=== PATIENT | female | born 1980 | race Caucasian/White ===

== ENCOUNTER 2019-10-26 16:39 | Emergency (ER) | payer BC, SELFPAY ==
--- NOTE | ~2019-10-26 | CT_ITS ---
EXAMINATION: CT brain wo con INDICATION: Headache COMPARISON: None TECHNIQUE: Standard unenhanced head CT. The dose-length product (DLP) was 605.33 mGy-cm. The mA was a djusted according to patient size. Iterative reconstruction technique was employed. FINDINGS: There is no intracranial hemorrhage, acute infarction, or abnormal mass lesion. The ventric les are normal. There is no abnormal mass effect or midline shift. The schafer-white matter differentiat ion is normal. The basal cisterns are patent. The orbits are normal. The paranasal sinuses, mastoids and calvarium are normal. IMPRESSION: 1. No acute intracranial abnormality. Reviewed, dictated and finalized at location A.
[2019-10-26 16:50] VITALS: BP 130/95; PULSE 111; RESP 20; TEMP 36.4; O2SAT 100
[2019-10-26] MEDS: SODIUM CHLORIDE 0.9% IV 1,000 ML 999 ML IV CONT (17:20)
--- NOTE | 2019-10-26 17:20 | ED.GENADULT ---
HPI - General Adult General Chief complaint: Headache <MICHELLE Ramirez Last Filed: 10/26/19 18:36> Stated complaint: headache, 20 wks <MICHELLE Ramirez Last Filed: 10/26/19 18:36> Time Seen by Provider: 10/26/19 16:48 <MICHELLE Ramirez Last Filed: 10/26/19 18:36> Source: patient <MICHELLE Ramirez Last Filed: 10/26/19 18:36> Mode of arrival: ambulatory <MICHELLE Ramirez Last Filed: 10/26/19 18:36> Limitations: no limitations <MICHELLE Ramirez Last Filed: 10/26/19 18:36> History of Present Illness HPI narrative: Patient is a 39-year-old female who presents noting right periorbital headache as a sharp stabbing pain for 3 days which is gradually worsened patient was seen by her office services associate today had ultrasound and is currently 20 weeks with a history of being G3, P2. Patient notes nausea but denies emesis injury trauma or URI symptoms. Patient notes she had headaches earlier in the denies any headaches over the last several weeks. On arrival patient is room in no distress patient denies any other focal neurologic deficits <MICHELLE Ramirez Last Filed: 10/26/19 18:36> Related Data Home medications: Home Medications Medication Instructions Recorded Confirmed cholecalciferol (vitamin D3) 50 mcg PO DAILY 10/26/19 pedi multivit no.91-iron fum mg PO DAILY 10/26/19 [Children's Chew Multivit-Iron] <MICHELLE Ramirez Last Filed: 10/26/19 18:36> Allergies/adverse reactions: Allergies Allergy/AdvReac Type Severity Reaction Status Date / Time Penicillins Allergy Unknown Rash Verified 10/26/19 16:59 <MICHELLE Ramirez Last Filed: 10/26/19 18:36> Review of Systems Review of Systems: All systems reviewed & are unremarkable except as noted in HPI and below <MICHELLE Ramirez Last Filed: 10/26/19 18:36> PMFSH Past Medical History Medical History: Medical History Bronchitis Streptococcal sore throat <Mckinley Jaime PA-C - Last Filed: 10/26/19 18:36> Surgical History Surgical History: Surgical History History of <Mckinley Jaime PA-C - Last Filed: 10/26/19 18:36> Social History Social History: Social History Smoking status: Never smoker Alcohol intake: current Gender identity (if verbalized by the patient): Male <Mckinley Jaime PA-C - Last Filed: 10/26/19 18:36> Exam Narrative: Exam Narrative: GENERAL: Well-appearing, well-nourished, and in no acute distress. HEAD: Normocephalic, atraumatic. EYES: PERRLA and EOMI. ENT: Nares clear, no rhinorrhea or epistaxis. Mucous membranes moist. Oropharynx without tonsillar hypertrophy exudate or other lesions. NECK: Supple. No adenopathy or masses. CHEST: Clear to auscultation. No respiratory distress. No wheezes rales or rhonchi HEART: Regular rate and rhythm. No murmur heard. Normal peripheral pulses. ABDOMEN: Soft, nontender, nondistended EXTREMITIES: Normal range of motion. No edema. SKIN: Warm, dry, no rash. NEURO: No focal deficits. Alert and oriented x3. Cranial nerves II through XII grossly intact. Normal speech. Cerebellar intact PSYCH: Normal mood and affect. <Mckinley Jaime PA-C - Last Filed: 10/26/19 18:36> Course Course Emergency Course: Patient in the room at this time resting comfortably afebrile nontoxic-appearing no distress felt appropriate for outpatient reevaluation agreeing to follow-up with her office services associate Patient had improvement with medications patient refused IV contrast in the imaging <Mckinley Jaime PA-C - Last Filed: 10/26/19 18:36> Vital Signs Vital signs: Vital Signs Temperature 36.4 C 10/26/19 16:50 Pulse Rate 111 H 10/26/19 16:50 Respir
[2019-10-26] MEDS: METOCLOPRAMIDE HCL INJ 10 MG/2 ML VIAL IV PUSH (17:21)
[2019-10-26 17:30] LABS: Basophils Percent Auto 0.4 % (0.2-1.2); Eosinophils Absolute Auto 0.1 K/mm3 (0-0.3); Eosinophils Percent Auto 0.5 % (0-4.4); Hematocrit 39.6 % (37.0-47.0); Immature Granulocyte Absolute 0.05 K/mm3 (0.00-0.031); Immature Granulocyte Percent A 0.5 % (0-0.5); Lymphocytes Absolute Auto 1.58 K/mm3 (0.9-3.2); Lymphocytes Percent Auto 14.3 % (18.3-44.2); Mean Corpuscular HGB Conc 32.8 g/dl (32-36); Mean Corpuscular Hemoglobin 28.8 pg (26-34); Mean Corpuscular Volume 87.8 fl (80-100); Mean Platelet Volume 11.1 fl (7.4-10.4); Monocytes Absolute Auto 0.8 K/mm3 (0.1-0.6); Neutrophils Absolute Auto 8.5 K/mm3 (1.3-6.7); Neutrophils Percent Auto 77.3 % (45.5-73.1); Platelet Count Result 242 k/mm3 (150-375); Red Blood Count 4.51 M/mm3 (4.2-5.4); Red Cell Distribution Width 14.8 % (11.5-14.5)
[2019-10-26 17:34] LABS: Add Urine Microscopic? YES; Appearance Urine Clear (Clear); Bacteria Urine 1+ /hpf; Bilirubin Urine Negative (Negative); Blood Urine Negative (Negative); Color Urine Yellow (Yellow); Glucose Urine UA Negative (Negative); Ketones Urine Negative (Negative); Leukocyte Esterase Ur Trace LEU/UL (Negative); Mucus Urine Rare /lpf; Nitrate Urine Negative (Negative); Protein Urine Negative (Negative); RBC Urine 0-2 /hpf (0-2); Specific Grav Ur 1.014 (1.001-1.035); Squamous Epithelial Cell Urine Many /hpf (Few); Urobilinogen Urine Negative mg/dL (<2.0); WBC Urine 0-3 /hpf
[2019-10-26 17:42] LABS: Alanine Aminotransferase 17 U/L (4-35); Alkaline Phosphatase 86 U/L (38-126); Aspartate Amino Transferase 20 U/L (14-36); Bilirubin,Total < 0.1 mg/dL (0.2-1.3); Blood Urea Nitrogen 8 mg/dL (7-17); Calcium 9.1 mg/dL (8.4-10.2); Carbon Dioxide 25 mmol/L (22-30); Chloride 104 mmol/L (98-107); Estimated CRCL calculation 145 ml/min; Estimated Glomerular Filt Rate > 60; Glucose 94 mg/dL (65-105); Potassium 3.9 mmol/L (3.4-5.0); Sodium 136 mmol/L (137-145)
--- NOTE | 2019-10-26 18:22 | PC.NURSE ---
[address] maria d well pt states AYALA is down to 08/16
[2019-10-26 18:23] VITALS: BP 122/80; PULSE 89; RESP 20; O2SAT 100
[2019-10-26 18:47] VITALS: BP 137/83; PULSE 82; RESP 16; O2SAT 99
== END 2019-10-26 18:47 | disposition home or self-care (01) ==
PROVIDERS: Emergency Medicine Emergency Medical Services; Emergency Provider Emergency Medicine; PCP Emergency Medicine
DX: O26.892 Other specified pregnancy related conditions, second trimester (principal); R51 Headache; Z3A.20 20 weeks gestation of pregnancy
CPT/HCPCS: 36415; 70450; 80053; 81001; 85025; 96361; 96374; 96375; 99284; J1200; J2765; J7030

== ENCOUNTER 2023-05-25 00:54 | Emergency (ER) | payer BC, SELFPAY ==
--- NOTE | ~2023-05-25 | XR_ITS ---
EXAMINATION: XR chest 2V 05/25/2023 01:17 INDICATION: Cough and shortness of breath PROCEDURE: 2 view chest COMPARISON: 04/14/2018 FINDINGS: The lungs are clear. The cardiomediastinal silhouette is within normal limits. There are no pleural effusions. There is no pneumothorax suspected. IMPRESSION: 1: NO ACUTE CARDIOPULMONARY DISEASE. Reviewed, dictated and finalized at location A. [employer]
[2023-05-25 00:57] VITALS: BP 136/84; PULSE 102; RESP 18; TEMP 36.6; O2SAT 98
[2023-05-25 01:08] VITALS: BP 136/80; PULSE 98; RESP 16; TEMP 36.9; O2SAT 100
--- NOTE | 2023-05-25 01:21 | ED.GENADULT ---
HPI - General Adult General Chief complaint: Upper Respiratory Infection Stated complaint: cough Time Seen by Provider: 05/25/23 01:06 History of Present Illness HPI narrative: patient is a 42-year-old female who presents emergency department with chief complaint of coughing congestion for 1 week. Patient reports that she saw her primary care provider and was started on Zithromax today the patient also has cough medications reports that she has had previous episodes in the past to this and usually gets a shot of a steroid by her primary doctor who just retired the patient states that she had difficulty sleeping and did notice that her oxygen levels on a hand-held pulse oximeter drifted down to 88% Related Data Home Medications Medication Instructions Recorded Confirmed cholecalciferol (vitamin D3) 50 50 mcg PO DAILY 10/26/19 07/11/20 mcg (2,000 unit) capsule pediatric multivit no.91-ferrous mg PO DAILY 10/26/19 07/11/20 fumarate 15 mg iron chewable tablet (Children's Chew Multivit with Iron) Allergies Allergy/AdvReac Type Severity Reaction Status Date / Time Penicillins Allergy Unknown Rash Verified 07/11/20 13:51 Review of Systems Review of Systems: A 10 system review of systems was completed on the patient and is negative except for what is stated in the HPI. Nursing and ancillary documentation was reviewed. [facility] Past Medical History Medical History Allergies YUNG positive Anxiety Bronchitis Frequent headaches GERD (gastroesophageal reflux disease) Hypertension IBS (irritable bowel syndrome) Inflammatory arthritis Rash and nonspecific skin eruption Streptococcal sore throat Surgical History Surgical History History of Family History Family History Mother Diabetes mellitus Hypertension Yeni's disease Father Patient's father is in good health Grandparent Cancer Grandparent Cancer Grandparent Heart disease Cerebrovascular accident Grandparent COPD (chronic obstructive pulmonary disease) Pulmonary embolism Sibling Yeni's disease Migraine Social History Social History Smoking status: Never smoker Alcohol intake: current Alcohol use details: Wine rarely Substance use: never Substance use type: does not use Living arrangements: with family Occupation/Education: occupation Gender identity (if verbalized by the patient): Female Exam Narrative: GENERAL: Well-appearing, well-nourished, and in no acute distress. HEAD: Normocephalic, atraumatic. EYES: PERRLA and EOMI. ENT: Nares clear, no rhinorrhea or epistaxis. Mucous membranes moist. NECK: Supple. CHEST: Clear to auscultation. No respiratory distress. HEART: Regular rate and rhythm. No murmur heard. Normal peripheral pulses. ABDOMEN: Soft, nontender, nondistended, normal active bowel sounds. EXTREMITIES: Normal range of motion. No edema. SKIN: Warm, dry, no rash. NEURO: No focal deficits. Alert and oriented x3. PSYCH: Normal mood and affect. Course Vital Signs Vital signs: Vital Signs Temperature 36.6 C 05/25/23 00:57 Pulse Rate 102 H 05/25/23 00:57 Respiratory Rate 18 05/25/23 00:57 Blood Pressure 136/84 05/25/23 00:57 Pulse Oximetry 98 05/25/23 00:57 Oxygen Delivery Room Air 05/25/23 00:57 Temperature 36.9 C 05/25/23 01:08 Pulse Rate 98 05/25/23 01:08 Respiratory Rate 16 05/25/23 01:08 Blood Pressure 136/80 05/25/23 01:08 Pulse Oximetry 100 05/25/23 01:08 Oxygen Delivery Room Air 05/25/23 01:08 Medical Decision Making [facility] Narrative Medical decision making narrative: differential diagnosis includes pneumonia, viral i
[2023-05-25 02:01] LABS: Influenza A QL RT-PCR Negative (Negative); Influenza B QL RT-PCR Negative (Negative); RSV RNA, RT-PCR Negative (Negative); SARS-CoV-2 RNA PCR Negative (Negative)
[2023-05-25 02:27] VITALS: BP 121/76; PULSE 87; RESP 16; TEMP 36.6; O2SAT 97
== END 2023-05-25 02:29 | disposition home or self-care (01) ==
PROVIDERS: Emergency Provider Emergency Medicine; PCP Internal Medicine
DX: J06.9 Acute upper respiratory infection, unspecified (principal); Z20.822 Contact with and (suspected) exposure to COVID-19; I10 Essential (primary) hypertension; K58.9 Irritable bowel syndrome, unspecified; K21.9 Gastro-esophageal reflux disease without esophagitis; M19.90 Unspecified osteoarthritis, unspecified site
CPT/HCPCS: 71046; 87637; 99283; J1100

== ENCOUNTER 2023-07-05 13:53 | Emergency (ER) | payer BC, SELFPAY ==
[2023-07-05 14:07] VITALS: BP 111/97; PULSE 97; RESP 16; TEMP 36.6; O2SAT 100
--- NOTE | 2023-07-05 14:33 | ED.URI ---
HPI - URI/Sore Throat General Chief Complaint: Upper Respiratory Infection Stated Complaint: COUGH/CHEST Time Seen by Provider: 07/05/23 14:30 42-year-old female presents with concern for cough, chest congestion for a month. She reports symptoms seem to have gotten worse since she got an injection for her arthritis a week ago. Source: patient and RN notes reviewed Mode of arrival: ambulatory Limitations: no limitations History of Present Illness MD elicited complaint: cough and sore throat Related Data Home Medications Medication Instructions Recorded Confirmed cholecalciferol (vitamin D3) 50 50 mcg PO DAILY 10/26/19 07/05/23 mcg (2,000 unit) capsule Allergies Allergy/AdvReac Type Severity Reaction Status Date / Time Penicillins Allergy Unknown Rash Verified 07/05/23 14:06 Review of Systems Review of Systems: CONSTITUTIONAL: Reports malaise. Denies fever. EYES: Denies visual changes, redness, or discharge. ENT: Reports rhinorrhea, congestion CARDIOVASCULAR: Denies chest pain, palpitations, or edema. RESPIRATORY: Reports cough and chest congestion. Denies dyspnea. GASTROINTESTINAL: Denies abdominal pain, nausea, vomiting, diarrhea SKIN: Denies rash or itching. MUSCULOSKELETAL: Denies myalgia. NEUROLOGIC: Denies headache. All systems reviewed & are unremarkable except as noted in HPI and below PMFSH Past Medical History Medical History Allergies YUNG positive Anxiety Bronchitis Frequent headaches GERD (gastroesophageal reflux disease) Hypertension IBS (irritable bowel syndrome) Inflammatory arthritis Rash and nonspecific skin eruption Streptococcal sore throat Surgical History Surgical History History of Family History Family History Mother Diabetes mellitus Hypertension Yeni's disease Father Patient's father is in good health Grandparent Cancer Grandparent Cancer Grandparent Heart disease Cerebrovascular accident Grandparent COPD (chronic obstructive pulmonary disease) Pulmonary embolism Sibling Yeni's disease Migraine Social History Social History Smoking status: Never smoker Alcohol intake: current Alcohol use details: Wine rarely Substance use: never Substance use type: does not use Living arrangements: with family Occupation/Education: occupation Gender identity (if verbalized by the patient): Female Comments At time of signature, agree with nursing past medical, surgical, social and family history. There is no relevant family history pertinent to the presenting complaint Exam Narrative: GENERAL: Nontoxic-appearing, well-nourished, and in no acute distress. HEAD: Normocephalic EYES: PERRLA, conjunctivae clear ENT: Nares clear. Mucous membranes moist. TM pearly schafer with dull light reflex bilaterally; no tragal tenderness. Oropharynx not erythematous without lesions. Tonsils not enlarged and without exudate, no drooling, no trismus, uvula midline. Mild hoarse voice NECK: Supple. No lymphadenopathy CHEST: Clear to auscultation, breath sounds equal. No wheezing, rhonchi, rales, or stridor. No respiratory distress, speaks in full sentences. Cough noted HEART: Regular rate and rhythm. No murmur heard. SKIN: Warm, dry, no rash. NEURO: Alert and oriented x3. PSYCH: Normal mood and affect Course Course Emergency Course: Patient is aware of diagnosis, understands and agrees to treatment plan. Anticipatory guidance given. Patient agrees to follow-up as directed and is aware of reasons to seek care at the emergency department. Portions of this record may have been created with voice recognition software Level of Care: [facility] Care Visit V
== END 2023-07-05 14:42 | disposition home or self-care (01) ==
PROVIDERS: Emergency Provider Nurse Practitioner
DX: J06.9 Acute upper respiratory infection, unspecified (principal); K21.9 Gastro-esophageal reflux disease without esophagitis; I10 Essential (primary) hypertension; M19.09 Primary osteoarthritis, other specified site
CPT/HCPCS: 99213; G0463

== ENCOUNTER 2024-03-17 21:01 | Emergency (ER) | payer BC, SELFPAY ==
--- NOTE | ~2024-03-17 | XR_ITS ---
CHEST RADIOGRAPH, PA AND LATERAL CLINICAL HISTORY: CP/SOB WITH COUGH . COMPARISON: 05/25/2023 TECHNIQUE: PA and lateral views of the chest. FINDINGS The cardiomediastinal silhouette is unremarkable. The lungs are clear. Visualized osseous structures and soft tissues are unremarkable. IMPRESSION: No focal infiltrate or effusion. Reviewed, dictated and finalized at location A.
--- NOTE | 2024-03-17 21:05 | ECG_ITS ---
Test Date: 2024-03-17 21:08:55 Measurements Intervals [place] Rate: 92 P: 51 [place]: 158 QRS: 46 QRSD: 93 T: 64 QT: 329 QTc: 408 Interpretive Statements SINUS RHYTHM WITHIN NORMAL LIMITS No previous ECG available for comparison Electronically Signed On 03-18-2024 07:56:23 CDT by Josué Grace M.D.
[2024-03-17 21:09] VITALS: BP 147/99; PULSE 98; RESP 17; TEMP 36.4; O2SAT 100
[2024-03-17 22:01] LABS: Influenza A QL RT-PCR Negative (Negative); Influenza B QL RT-PCR Negative (Negative); RSV RNA, RT-PCR Negative (Negative); SARS-CoV-2 RNA PCR Negative (Negative)
[2024-03-17 22:26] VITALS: PULSE 86
[2024-03-17 22:26] LABS: Basophils Absolute Auto 0.1 K/mm3 (0.0-0.1); Basophils Percent Auto 0.7 % (0.2-1.2); Eosinophils Absolute Auto 0.3 K/mm3 (0-0.3); Hemoglobin 12.5 g/dL (12.0-15.0); Immature Granulocyte Absolute 0.03 K/mm3 (0.00-0.031); Immature Granulocyte Percent A 0.3 % (0-0.5); Lymphocytes Absolute Auto 2.29 K/mm3 (0.9-3.2); Lymphocytes Percent Auto 22.5 % (18.3-44.2); Mean Corpuscular HGB Conc 32.1 g/dl (32-36); Mean Corpuscular Hemoglobin 28.7 pg (26-34); Mean Corpuscular Volume 89.7 fl (80-100); Mean Platelet Volume 10.6 fl (7.4-10.4); Monocytes Absolute Auto 1.1 K/mm3 (0.1-0.6); Monocytes Percent Auto 10.3 % (2.6-8.5); Neutrophils Absolute Auto 6.4 K/mm3 (1.3-6.7); Neutrophils Percent Auto 63.2 % (45.5-73.1); Platelet Count Result 234 k/mm3 (150-375); Red Blood Count 4.35 M/mm3 (4.2-5.4); Red Cell Distribution Width 13.9 % (11.5-14.5); White Blood Count 10.2 K/mm3 (4.5-10.0)
--- NOTE | 2024-03-17 22:26 | ED.GENADULT ---
HPI - General Adult General Chief complaint: Shortness of Breath/Dyspnea Stated complaint: SOB, cough Time Seen by Provider: 03/17/24 22:17 History of Present Illness HPI narrative: 43-year-old female present to the emergency department for evaluation for difficulty breathing after being exposed to crop dust. Patient states that while she is unsure if she has seasonal allergies she states she does develop similar symptoms to this about the same time of the year. Patient did try her albuterol inhaler this morning with no significant improvement. Patient only did 1 puff per the instructions. Patient did try Benadryl without significant improvement. Patient arrives to the emergency department in notice past but complaining of increased mucus production and persistent cough. Related Data Home Medications Medication Instructions Recorded Confirmed cholecalciferol (vitamin D3) 50 50 mcg PO DAILY 10/26/19 07/05/23 mcg (2,000 unit) capsule Allergies Allergy/AdvReac Type Severity Reaction Status Date / Time Penicillins Allergy Unknown Rash Verified 07/05/23 14:06 Review of Systems Review of Systems: All systems reviewed & are unremarkable except as noted in HPI and below PMFSH Past Medical History Medical History Allergies YUNG positive Anxiety Bronchitis Frequent headaches GERD (gastroesophageal reflux disease) Hypertension IBS (irritable bowel syndrome) Inflammatory arthritis Rash and nonspecific skin eruption Streptococcal sore throat Surgical History Surgical History History of Family History Family History Mother Diabetes mellitus Hypertension Yeni's disease Father Patient's father is in good health Grandparent Cancer Grandparent Cancer Grandparent Heart disease Cerebrovascular accident Grandparent COPD (chronic obstructive pulmonary disease) Pulmonary embolism Sibling Yeni's disease Migraine Social History Social History Smoking status: Never smoker Alcohol intake: current Alcohol use details: Wine rarely Substance use: never Substance use type: does not use Living arrangements: with family Occupation/Education: occupation Gender identity (if verbalized by the patient): Female Exam Narrative: APPEARANCE: Well appearing, no pain, no distress, well-nourished. HEAD: normocephalic, atraumatic. EYES: PERRLA/EOMI, conjunctivae clear. NOSE: Normal no drainage EARS:TMS clear with good light reflex. THROAT: Pharynx clear, no exudate. NECK: Supple. No adenopathy, no masses. RESPIRATORY: Minimal amount of expiratory wheeze CARDIOVASCULAR: Regular rate and rhythm without murmurs rubs or gallops. ABDOMINAL: Soft, nontender, nondistended, normal bowel sounds MUSCULOSKELETAL: Moves all extremities. Strength/ROM intact, No edema, No calf tenderness. NEURO: Alert. Cranial nerves II through XII intact. Good gait. Good coordination SKIN: Warm, dry. Normal Color Course Course Emergency Course: patient did feel improved with treatment. Vital Signs Vital signs: Vital Signs Temperature 97.5 F L 03/17/24 21:09 Pulse Rate 98 03/17/24 21:09 Respiratory Rate 17 03/17/24 21:09 Blood Pressure 147/99 H 03/17/24 21:09 Pulse Oximetry 100 03/17/24 21:09 Oxygen Delivery Room Air 03/17/24 21:09 Temperature 98.7 F 03/17/24 22:28 Pulse Rate 84 03/17/24 22:44 Respiratory Rate 18 03/17/24 22:44 Blood Pressure 135/75 03/17/24 22:28 Pulse Oximetry 99 03/17/24 22:28 Oxygen Delivery Room Air 03/17/24 22:27 Medical Decision Making MDM Narrative Medical decision making narrative: 43-year-old female presenting ED for eval
[2024-03-17 22:27] VITALS: O2SAT 99
[2024-03-17 22:28] VITALS: BP 135/75; PULSE 88; RESP 14; TEMP 37.1; O2SAT 99
[2024-03-17 22:37] VITALS: PULSE 90; RESP 17
[2024-03-17 22:37] LABS: Alanine Aminotransferase 24 U/L (6-35); Albumin Level 4.3 g/dL (3.5-5.1); Alkaline Phosphatase 53 U/L (38-126); Anion Gap 9 mmol/L (4-12); Aspartate Amino Transferase 29 U/L (14-36); Bilirubin,Total 0.3 mg/dL (0.2-1.3); Blood Urea Nitrogen 18 mg/dL (7-17); Calcium 8.9 mg/dL (8.4-10.2); Carbon Dioxide 22 mmol/L (22-30); Chloride 107 mmol/L (98-107); Estimated CRCL calculation 116 ml/min; Estimated Glomerular Filt Rate > 60; Glucose 95 mg/dL (65-110); Potassium 3.7 mmol/L (3.4-5.0); Sodium 138 mmol/L (137-145)
[2024-03-17] MEDS: ALBUTEROL SULFATE NEB 2.5 MG/3 ML INH INHALATION (22:37)
[2024-03-17 22:44] VITALS: PULSE 84; RESP 18
== END 2024-03-17 23:36 | disposition home or self-care (01) ==
PROVIDERS: Emergency Provider Emergency Medicine
DX: J98.01 Acute bronchospasm (principal); Z20.822 Contact with and (suspected) exposure to COVID-19; F41.9 Anxiety disorder, unspecified; K21.9 Gastro-esophageal reflux disease without esophagitis; I10 Essential (primary) hypertension
CPT/HCPCS: 36415; 71046; 80053; 85025; 87637; 93005; 94640; 99284

== ENCOUNTER 2024-03-20 02:11 | Emergency (ER) | payer BC, SELFPAY ==
[2024-03-20 02:15] VITALS: BP 136/90; PULSE 108; RESP 20; TEMP 36.6; O2SAT 100
== END 2024-03-20 04:56 | disposition left against medical advice (07) ==
DX: R05.9 Cough, unspecified (principal)
CPT/HCPCS: 99199

== ENCOUNTER 2024-03-20 10:06 | Emergency (ER) | payer BC, SELFPAY ==
--- NOTE | ~2024-03-20 | XR_ITS ---
EXAMINATION: XR chest 2V DATE: 03/20/2024 10:58 INDICATION: Cough and shortness of breath. TECHNIQUE: Frontal and lateral views of the chest were obtained. COMPARISON: Chest 2 views 03/17/2024 FINDINGS: There is no pneumonia, pleural effusion, or pneumothorax. The heart size is normal. IMPRESSION: 1. No acute cardiopulmonary disease. Reviewed, dictated and finalized at location A.
[2024-03-20 10:17] VITALS: BP 118/87; PULSE 100; RESP 16; TEMP 36.9; O2SAT 100
--- NOTE | 2024-03-20 10:38 | ED.URI ---
HPI - URI/Sore Throat General Chief Complaint: Upper Respiratory Infection Stated Complaint: cough / vomiting Time Seen by Provider: 03/20/24 10:39 Source: patient Mode of arrival: ambulatory Limitations: no limitations History of Present Illness HPI Narrative: Yaneth is a 43-year-old female patient presenting to the clinic today with complaints of cough, shortness of breath, chest discomfort on inspiration, and vomiting due to the cough for the past 4 days. She reports that she went to the ER on Friday and was tested for COVID, flu, RSV, and had a chest x-ray done. She was given a breathing treatment while in the ER as well. All testing was negative at that time. Was sent home with an inhaler and diagnosed with bronchospasm. States she has been taking the albuterol inhaler, ibuprofen, and Claritin for her symptoms. States that over the past few days she feels as though her symptoms have gotten worse. Is having more chest congestion and shortness of breath. Cough is now productive with mucus. She denies any fever or chills. Has been coughing so hard that she has induced some vomiting. MD elicited complaint: sore throat and nasal congestion Related Data Home Medications Medication Instructions Recorded Confirmed cholecalciferol (vitamin D3) 50 50 mcg PO DAILY 10/26/19 03/20/24 mcg (2,000 unit) capsule albuterol sulfate 90 mcg/actuation 1 inh inhalation QID shortness of 03/20/24 03/20/24 aerosol inhaler breath or wheezing Allergies Allergy/AdvReac Type Severity Reaction Status Date / Time Penicillins Allergy Unknown Rash Verified 03/20/24 10:34 Review of Systems Review of Systems: Pertinent positives per HPI. Patient denies any fever, chills, rash, headache, visual changes, dizziness, chest pain, palpitations, nausea, diarrhea, constipation, abdominal pain, or any urinary issues. [facility] Past Medical History Medical History Allergies YUNG positive Anxiety Bronchitis Frequent headaches GERD (gastroesophageal reflux disease) Hypertension IBS (irritable bowel syndrome) Inflammatory arthritis Rash and nonspecific skin eruption Streptococcal sore throat Surgical History Surgical History History of Family History Family History Mother Diabetes mellitus Hypertension Yeni's disease Father Patient's father is in good health Grandparent Cancer Grandparent Cancer Grandparent Heart disease Cerebrovascular accident Grandparent COPD (chronic obstructive pulmonary disease) Pulmonary embolism Sibling Yeni's disease Migraine Social History Social History Smoking status: Never smoker Alcohol intake: current Alcohol use details: Wine rarely Substance use: never Substance use type: does not use Living arrangements: with family Occupation/Education: occupation Gender identity (if verbalized by the patient): Female Comments At the time of my signature, I reviewed and agree with the nursing past medical, surgical, social, and family history. There is no relevant family history pertinent to the patient complaint. Exam Narrative: General: Well-developed, obese, in no apparent distress Head: Normocephalic, atraumatic Eyes: Pupils equally round and reactive to light bilaterally, EOM intact, sclera and conjunctive clear, no discharge, lids normal Ears: TMs intact and clear, ear canals clear, no drainage, grossly hearing normal. Nose: Nares patent, clear nasal discharge, no inflammation, no sinus tenderness. Mouth: Oral pharynx without lesions or masses, good dentition, MMM. Neck: Supple, trachea midline, no enlargement of anterior or posterior cervical nodes, no thyroid masses o
[2024-03-20 11:12] LABS: EDCOVIDSCREEN Negative (Negative); EDINFLUASCREEN Negative (Negative); EDINFLUBSCREEN Negative (Negative)
== END 2024-03-20 11:16 | disposition home or self-care (01) ==
PROVIDERS: Emergency Provider Nurse Practitioner Family
DX: J20.8 Acute bronchitis due to other specified organisms (principal); J06.9 Acute upper respiratory infection, unspecified
CPT/HCPCS: 71046; 87426; 87804; 99213; G0463

== ENCOUNTER 2024-04-28 18:33 | Emergency (ER) | payer BC, SELFPAY ==
[2024-04-28 18:50] VITALS: BP 121/76; PULSE 82; RESP 17; TEMP 36.3; O2SAT 100
--- NOTE | 2024-04-28 18:52 | ED_ITS ---
HPI - URI/Sore Throat General Chief Complaint: Upper Respiratory Infection Stated Complaint: sore throat / cough Time Seen by Provider: 04/28/24 18:52 Source: patient Mode of arrival: ambulatory Limitations: no limitations History of Present Illness HPI Narrative: 43-year-old female presents with complaint of pain to left side of throat for 2 weeks. Patient states she has a sensation that something is stuck on left- sided throat . Afebrile. Patient Also has had a cough since March. 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 patient states cough is improving. All systems reviewed and negative except as noted above. Related Data Home Medications Medication Instructions Recorded Confirmed cholecalciferol (vitamin D3) 50 50 mcg PO DAILY 10/26/19 04/28/24 mcg (2,000 unit) capsule albuterol sulfate 90 mcg/actuation 1 inh inhalation PRN PRN shortness 03/20/24 04/28/24 aerosol inhaler of breath or wheezing Allergies Allergy/AdvReac Type Severity Reaction Status Date / Time Penicillins AdvReac Mild Rash Verified 04/28/24 18:39 Review of Systems Review of Systems: CONSTITUTIONAL: Denies fever, chills, or sweats. EYES: Denies visual changes, redness, or discharge. ENT: Denies rhinorrhea, congestion. Reports pain to left side of throat. CARDIOVASCULAR: Denies chest pain, palpitations, or edema. RESPIRATORY: Reports cough. Denies dyspnea. GASTROINTESTINAL: Denies abdominal pain, nausea, vomiting, or diarrhea. GENITOURINARY: Denies dysuria or hematuria. SKIN: Denies rash or itching. MUSCULOSKELETAL: Denies back pain, joint pain, or myalgia. NEUROLOGIC: Denies headache, numbness, or weakness. PSYCHIATRIC: Denies anxiety or depression. All other systems reviewed are negative, except as documented in HPI. [facility] Past Medical History Medical History Allergies YUNG positive Anxiety Bronchitis Frequent headaches GERD (gastroesophageal reflux disease) Hypertension IBS (irritable bowel syndrome) Inflammatory arthritis Rash and nonspecific skin eruption Streptococcal sore throat Surgical History Surgical History History of Family History Family History Mother Diabetes mellitus Hypertension Yeni's disease Father Patient's father is in good health Grandparent Cancer Grandparent Cancer Grandparent Heart disease Cerebrovascular accident Grandparent COPD (chronic obstructive pulmonary disease) Pulmonary embolism Sibling Yeni's disease Migraine Social History Social History Smoking status: Never smoker Alcohol intake: current Alcohol use details: Wine rarely Substance use: never Substance use type: does not use Living arrangements: with family Occupation/Education: occupation Gender identity (if verbalized by the patient): Female Comments At time of signature, agree with nursing past medical, surgical, social and family history. There is no relevant family history pertinent to the presenting complaint. Exam Narrative: GENERAL: This is a well-nourished, well-developed patient, in no apparent distress. HEAD: normocephalic, atraumatic. EYES: PERRL. Sclera clear/white. Vision is grossly intact. EARS: External ears normal, auditory canals clear and without drainage, TMs normal without perforation. Hearing grossly intact. NOSE: External nose normal with no obvious nasal discharge, nares without redness, no rhinorrhea. THROAT: Mucous membranes moist, No significant erythema. No swelling Or exudates. No tonsil stone noted. No tonsillar swelling concerning for a tonsillar abscess. NECK: Neck supple, non-tender without lymphadenopathy, masses or thyromegaly. CARDIOVASCULAR: Regular rate and rhythm without murmurs, gallops, or rubs. RESPIRATORY: Clear to auscultation. Breath sounds equal bilaterally. No wheezes, rales, or rhonchi. SKIN: warm, Dry, intact with no suspicious lesions or rash, good texture and turgor. NEURO: awake, alert, and oriented to person, place and time. There were no obvious focal neurologic abnormalities. EXTREMITIES: No joint tenderness, effusion, or edema noted. Course Course Level of Care: Express Care Visit Vital Signs Vital signs: Vital Signs Temperature 36.3 C L 04/28/24 18:50 Pulse Rate 82 04/28/24 18:50 Respiratory Rate 17 04/28/24 18:50 Blood Pressure 121/76 04/28/24 18:50 Pulse Oximetry 100 04/28/24 18:50 Oxygen Delivery Room Air 04/28/24 18:50 Temperature 36.3 C L 04/28/24 18:50 Pulse Rate 82 04/28/24 18:50 Respiratory Rate 17 04/28/24 18:50 Blood Pressure 121/76 04/28/24 18:50 Pulse Oximetry 100 04/28/24 18:50 Oxygen Delivery Room Air 04/28/24 18:50 Reviewed MDM - URI/Sore Throat MDM Narrative Medical decision making narrative: eczema throat is. no exam findings concerning for tonsillar abscess. Strep test was negative. Strep culture ordered. Recommend patient follow-up with her primary care physician for further evaluation. Patient is aware of diagnosis, understands and agrees to treatment plan. Anticipatory guidance given. Patient agrees to follow-up as directed and is aware of reasons to seek care at the emergency department. Portions of this record may have been created with voice recognition software Differential Diagnosis Differential diagnosis: Likely upper respiratory infection, sinusitis, viral infection and pharyngitis Lab Data Labs: Lab Results 04/28/24 Range/Units 19:01 POC Grp A Strep Screen Negative (Negative) Discharge Plan Discharge Clinical Impression: Acute pharyngitis Patient Disposition: Home, Self-Care Condition: Stable Instructions: Pharyngitis (ED) Additional Instructions: your strep test was negative today. A strep culture was ordered and results will take 24-48 hours. If your strep culture is positive we will call you at that time and prescribed an antibiotic. Continue to take ibuprofen or Tylenol every 6-8 hours as needed for pain. Drink at least 64 oz of water a day. Follow-up with your primary care physician if symptoms are not improving. Prescriptions: No Action albuterol sulfate 90 mcg/actuation HFA aerosol inhaler 1 inh inhalation PRN PRN (Reason: shortness of breath or wheezing) cholecalciferol (vitamin D3) 50 mcg (2,000 unit) Capsule 50 mcg PO DAILY Follow-up/Referrals: Abigail,Laila [Other] Time of Disposition: 19:07
[2024-04-28 19:02] LABS: EDSTREPNEGPOS1 Negative (Negative)
== END 2024-04-28 19:08 | disposition home or self-care (01) ==
PROVIDERS: Emergency Provider Nurse Practitioner Family
DX: J02.9 Acute pharyngitis, unspecified (principal); I10 Essential (primary) hypertension; K21.9 Gastro-esophageal reflux disease without esophagitis; M13.80 Other specified arthritis, unspecified site
CPT/HCPCS: 87081; 87880; 99213; G0463